=== PATIENT | female | born 1935 | race Caucasian/White ===

== ENCOUNTER 2018-07-28 10:32 | Inpatient (IN) | payer MEDICARE ==
[2018-07-28] MEDS ORDERED: Sodium Chloride 0.9% 500 ML IV ONE (10:48)
[2018-07-28 11:08] LABS: BASO # 0.1 K/uL (0.0-0.2); BASO % 1.3 % (0.0-2.0); EOS % 0.7 % (0.0-4.0); HEMOGLOBIN 13.8 g/dL (12.0-16.0); LYMPH # 1.4 K/uL (1.0-4.3); LYMPH % 21.2 % (20.0-40.0); MEAN CELL VOLUME 93.2 fl (81.0-99.0); MEAN CORPUSCULAR HEMOGLOBIN 30.6 pg (27.0-31.0); MEAN CORPUSCULAR HGB CONC 32.8 g/dL (33.0-37.0); MONO # 0.3 K/uL (0.0-0.8); NEUT # 4.8 K/uL (1.8-7.0); NEUT % 71.8 % (50.0-75.0); RBC 4.52 Mil/uL (3.80-5.20); RED CELL DISTRIBUTION WIDTH 14.5 % (11.5-14.5); WHITE BLOOD COUNT 6.8 K/uL (4.8-10.8)
[2018-07-28 11:17] LABS: ALB/GLOB RATIO 1.1 (1.0-2.1); ALT/SGPT 15 U/L (9-52); AST/SGOT 20 U/L (14-36); BLOOD UREA NITROGEN 27 mg/dl (7-17); CALCIUM 9.7 mg/dL (8.4-10.2); GFR NON-AFRICAN AMERICAN 53
[2018-07-28 11:35] LABS: SQUAMOUS EPITHIAL 3 /hpf (0-5); URINE BILIRUBIN NEGATIVE (NEGATIVE); URINE BLOOD MODERATE (NEGATIVE); URINE CLARITY CLOUDY (Clear); URINE COLOR YELLOW (YELLOW); URINE GLUCOSE (UA) NEG (NEGATIVE); URINE LEUKOCYTE ESTERASE SMALL Leu/uL (Negative); URINE PROTEIN NEGATIVE (NEGATIVE)
--- NOTE | 2018-07-28 12:28 | ED PDOC ---
Syncope/Near Syncope/Dizziness Time Seen by Provider: 07/28/18 10:56 Chief Complaint (Nursing): Syncope Chief Complaint (Provider): syncope History Per: Patient (83 y/o female h/o Dementia and HTN here with son (primary coating and baking operator) for evaluation of 2 episodes of near syncope and third episode of syncope today 1 hour prior to ED arrival. Denies any chest pain/abdominal pain complaints. No h/o CVA/syncope in past.) Past Medical History Reviewed: Historical Data, Nursing Documentation, Vital Signs Vital Signs: Last Vital Signs Temp 98.5 F 07/28/18 11:29 Pulse 102 H 07/28/18 11:26 Resp 22 07/28/18 11:26 BP 133/78 07/28/18 11:26 Pulse Ox 97 07/28/18 11:26 - Medical History PMH: Asthma, Dementia, HTN Denies: Diabetes, Hepatitis, HIV, Seizures, Sexually Transmitted Disease - Family History Family History: States: No Known Family Hx - Home Medications Home Medications: Ambulatory Orders Medication Instructions Recorded Memantine [Namenda] 10 mg PO BID 07/28/18 - Allergies Allergies/Adverse Reactions: Allergies Allergy/AdvReac Type Severity Reaction Status Date / Time Penicillins Allergy RASH Verified 07/28/18 13:21 Review of Systems ROS Statement: Except As Marked, All Systems Reviewed And Found Negative Physical Exam - Reviewed Nursing Documentation Reviewed: Yes Vital Signs Reviewed: Yes - Physical Exam Appears: Positive for: Well, Non-toxic, No Acute Distress Head Exam: Positive for: ATRAUMATIC, NORMAL INSPECTION, NORMOCEPHALIC Skin: Positive for: Normal Color, Warm, DRY Eye Exam: Positive for: EOMI, Normal appearance, PERRL ENT: Positive for: Normal ENT Inspection Neck: Positive for: Normal, Painless ROM Cardiovascular/Chest: Positive for: Regular Rate, Rhythm Respiratory: Positive for: CNT, Normal Breath Sounds Gastrointestinal/Abdominal: Positive for: Normal Exam, Soft Back: Positive for: Normal Inspection Extremity: Positive for: Normal ROM Neurologic/Psych: Positive for: Alert, Oriented - Laboratory Results Result Diagrams: 07/28/18 10:59 07/28/18 10:59 - ECG ECG Rhythm: Positive for: Sinus Rhythm (99BPM NEW LBBB COMPARED TO OLD EKG 2016) O2 Sat by Pulse Oximetry: 97 - Progress ED Course And Treament: HEAD CT: PENDING NS 500ML IV BOLUS. UTI NOTED. rocephin d/c as pcn allergy noted. macrobid 100mg x 1 dose D/W HYACINTH REARDON ADMIT TO FINANCIAL SALES ADVISOR CT: No significant interval changes appreciated in pattern of age related neuro degenerative changes described above. No acute intracranial findings by standard CT criteria. Follow-up CT or MRI are available if clinically warranted. Disposition - Clinical Impression Clinical Impression: Syncope, New onset left bundle branch block (LBBB), UTI (urinary tract infection) - Patient ED Disposition Is Patient to be Admitted: Yes - Disposition Disposition Time: 12:28 Condition: FAIR - Pt Status Changed To: Hospital Disposition Of: Inpatient - Admit Certification Admit to Inpatient:: After my assessment, the patient will require hospitalization for at least two midnights. This is because of the severity of symptoms shown, intensity of services needed, and/or the medical risk in this patient being treated as an outpatient.
[2018-07-28] MEDS ORDERED: cefTRIAXone (Rocephin) 1 gm Inj IVPB ONE (12:30)
--- NOTE | 2018-07-28 12:58 | CT ---
Date of service: 07/28/2018 PROCEDURE: CT HEAD WITHOUT CONTRAST. HISTORY: syncope COMPARISON: Noncontrast head CT 01/03/2015. TECHNIQUE: Axial computed tomography images were obtained through the head/brain without intravenous contrast. Radiation dose: Total exam DLP = 1234.94 mGy-cm. This CT exam was performed using one or more of the following dose reduction techniques: Automated exposure control, adjustment of the mA and/or kV according to patient size, and/or use of iterative reconstruction technique. FINDINGS: HEMORRHAGE: No intracranial hemorrhage. BRAIN: Good corticomedullary differentiation is seen. Reiterated diffuse cerebral atrophy and chronic microangiopathy. No suspicious extra-axial fluid collection is identified and the midline brain anatomy appears grossly nonfocal as imaged. No mass effect identified. VENTRICLES: Unremarkable. No hydrocephalus. CALVARIUM: Unremarkable. PARANASAL SINUSES: Unremarkable as visualized. No significant inflammatory changes. MASTOID AIR CELLS: Unremarkable as visualized. No inflammatory changes. OTHER FINDINGS: None. IMPRESSION: No significant interval changes appreciated in pattern of age related neuro degenerative changes described above. No acute intracranial findings by standard CT criteria. Follow-up CT or MRI are available if clinically warranted.
[2018-07-28] MEDS ORDERED: cefTRIAXone (Rocephin) 1 gm Inj ONE (13:18)
--- NOTE | 2018-07-28 14:52 | CARD ---
APPROVED REPORT Date of service: 07/28/2018 EKG Measurement Heart [id number] <Conclusion> Normal sinus rhythm Left bundle branch block Abnormal ECG
--- NOTE | 2018-07-28 16:32 | RAD ---
Date of service: 07/28/2018 HISTORY: routine COMPARISON: Chest radiographs 01/03/2015. FINDINGS: LUNGS: No active pulmonary disease. PLEURA: No significant pleural effusion identified, no pneumothorax apparent. CARDIOVASCULAR: Calcific atherosclerotic changes are seen related to the thoracic aorta. Normal cardiac size. No pulmonary vascular congestion. OSSEOUS STRUCTURES: No significant abnormalities. VISUALIZED UPPER ABDOMEN: Normal. OTHER FINDINGS: None. IMPRESSION: No interval acute cardiopulmonary disease appreciated.
[2018-07-28] MEDS ORDERED: levoFLOXacin 500 mg in D5W 500 MG/100 ML BAG IVPB STA (20:05)
[2018-07-28] MEDS: Sodium Chloride 0.9% 1,000 ML IV SCH (21:34)
[2018-07-29] MEDS: Sodium Chloride 0.9% 1,000 ML IV SCH ×2 (05:44→15:52)
[2018-07-29 06:58] LABS: BASO % 0.6 % (0.0-2.0); EOS # 0.1 K/uL (0.0-0.7); EOS % 1.6 % (0.0-4.0); HEMOGLOBIN 10.9 g/dL (12.0-16.0); LYMPH # 1.7 K/uL (1.0-4.3); LYMPH % 29.3 % (20.0-40.0); MEAN CELL VOLUME 92.8 fl (81.0-99.0); MEAN CORPUSCULAR HEMOGLOBIN 30.5 pg (27.0-31.0); MEAN CORPUSCULAR HGB CONC 32.9 g/dL (33.0-37.0); MEAN PLATELET VOLUME 7.6 fl (7.2-11.7); MONO # 0.5 K/uL (0.0-0.8); MONO % 9.2 % (0.0-10.0); NEUT # 3.4 K/uL (1.8-7.0); NEUT % 59.3 % (50.0-75.0); NRBC % 0.1 % (0.0-0.0); RBC 3.58 Mil/uL (3.80-5.20); RED CELL DISTRIBUTION WIDTH 14.4 % (11.5-14.5); WHITE BLOOD COUNT 5.7 K/uL (4.8-10.8)
[2018-07-29 07:27] LABS: CALCIUM 8.7 mg/dL (8.4-10.2)
[2018-07-29 07:28] LABS: TROPONIN I 0.027 ng/mL (0.00-0.120)
[2018-07-29] MEDS: levoFLOXacin 250 mg in D5W 250 MG/50 ML BAG IVPB SCH (08:44)
--- NOTE | 2018-07-29 17:50 | US ---
Date of service: 07/29/2018 PROCEDURE: Bilateral lower extremity venous duplex Doppler. HISTORY: discomfort COMPARISON: None available. TECHNIQUE: Bilateral common femoral, superficial femoral, popliteal and posterior tibial veins were evaluated. Flow was assessed with color Doppler, compressibility, assessment of phasic flow and augmentation response. FINDINGS: COMMON FEMORAL VEIN: Right CFV: Unremarkable. Left CFV: Unremarkable. SUPERFICIAL FEMORAL VEIN: Right SFV: Unremarkable. Left SFV: Unremarkable. POPLITEAL VEIN: Right Popliteal: Unremarkable. Left Popliteal: Unremarkable. POSTERIOR TIBIAL VEIN: Right PTV: Unremarkable. Left PTV: Unremarkable. OTHER FINDINGS: Left popliteal cyst 1.6 x 0.7 x 1.7 cm. IMPRESSION: No sonographic evidence of deep venous thrombosis bilateral lower extremities. Left popliteal cyst identified as discussed above.
--- NOTE | 2018-07-29 17:52 | CP.PCM.CON ---
History of Present Illness - History of Present Illness History of Present Illness: ASKED TO SEE PT BY DR FERRERA IN COVERAGE. 83 YO FEMALE WITH SYNCOPE X 1. PT WITH DEMENTIA THUS HISTORY PER CHART AND SON. EKG SHOWS BRADYCARDIA WITH INTERMITTENT MOBITZ 1, AND LBBB. TELE INTERMITTENT ATRIAL AND VENTRICULAR BIGEMINEY WITH HEART BLOCK. PT HAS NO HX OF CAD OR CARDIAC DISORDERS. NOT ON AVN BLOCKING DRUGS. Review of Systems - Review of Systems Systems not reviewed;Unavailable: Dementia Past Patient History - Tetanus Immunizations Tetanus Immunization: Unknown - Past Medical History & Family History Past Medical History?: Yes Past Family History: Reviewed and not pertinent - Past Social History Smoking Status: Former Smoker Chewing Tobacco Use: No Cigar Use: No Alcohol: None Home Situation {Lives}: With Family Domestic Violence: Negative - CARDIAC Hx Cardiac Disorders: No Hx Hypertension: No - PULMONARY Hx Respiratory Disorders: Yes Hx Asthma: Yes - NEUROLOGICAL Hx Dementia: Yes Hx Seizures: No - HEENT Hx HEENT Problems: No - RENAL Hx Chronic Kidney Disease: No - ENDOCRINE/METABOLIC Hx Endocrine Disorders: No - HEMATOLOGICAL/ONCOLOGICAL Hx Blood Disorders: No Hx AIDS: No Hx Human Immunodeficiency Virus (HIV): No - INTEGUMENTARY Hx Dermatological Problems: No - MUSCULOSKELETAL/RHEUMATOLOGICAL Hx Musculoskeletal Disorders: Yes Hx Falls: Yes - GASTROINTESTINAL Hx Gastrointestinal Disorders: No - GENITOURINARY/GYNECOLOGICAL Hx Genitourinary Disorders: No Hx Sexually Transmitted Disorders: No - PSYCHIATRIC Hx Psychophysiologic Disorder: No Hx Substance Use: No - SURGICAL HISTORY Hx Surgeries: No - ANESTHESIA Hx Anesthesia: No Meds Allergies/Adverse Reactions: Allergies Allergy/AdvReac Type Severity Reaction Status Date / Time Penicillins Allergy RASH Verified 07/28/18 13:21 - Medications Medications: Current Medications Acetaminophen (Tylenol 325mg Tab) 325 mg PO Q6 PRN PRN Reason: Pain, Mild (1-3) Acetaminophen (Tylenol 325mg Tab) 650 mg PO Q6 PRN PRN Reason: Pain, moderate (4-7) Last Admin: 07/29/18 15:21 Dose: 650 mg Sodium Chloride (Sodium Chloride 0.9%) 1,000 mls @ 100 mls/hr IV .Q10H ONOFRE Last Admin: 07/29/18 15:52 Dose: 100 mls/hr Levofloxacin/Dextrose (Levaquin 250mg) 250 mg in 50 mls @ 50 mls/hr IVPB DAILY ONOFRE; Protocol Last Admin: 07/29/18 08:44 Dose: 50 mls/hr Memantine (Namenda) 10 mg PO BID ONOFRE Last Admin: 07/29/18 08:44 Dose: 10 mg Physical Exam - Constitutional Appears: Confused - Head Exam Head Exam: ATRAUMATIC, NORMAL INSPECTION, NORMOCEPHALIC - Eye Exam Eye Exam: EOMI, Normal appearance, PERRL. absent: Conjunctival injection, Nystagmus, Periorbital swelling, Periorbital tenderness, Scleral icterus Pupil Exam: NORMAL ACCOMODATION, PERRL. absent: Fixed, Irregular, Miosis, Mydriatic, Unequal - ENT Exam ENT Exam: Mucous Membranes Moist, Normal Exam. absent: Mucous Membranes Dry, Normal External Ear Exam, Normal Oropharynx, TM's Normal Bilaterally - Neck Exam Neck exam: Positive for: Normal Inspection. Negative for: Full Rom, Lymphadenopathy, Meningismus, Tenderness, Thyromegaly - Respiratory Exam Respiratory Exam: Clear to Auscultation Bilateral, NORMAL BREATHING PATTERN. absent: Accessory Muscle Use, Chest Wall Tenderness, Decreased Breath Sounds, Prolonged Expiratory Phase, Rales, Rhonchi, Wheezes, Respiratory Distress, Stridor - Cardiovascular Exam Cardiovascular Exam: REGULAR RHYTHM, +S1, +S2, Systolic Murmur. absent: Bradycardia, Tachycardia, Clicks, Diastolic murmur, Gallop, Irregular Rhythm, JVD, RRR, Rubs, +S4 - GI/Abdominal Exam GI & Abdominal Exam: Normal Bowel Sounds, Soft. absent: Bruit, Diminished Bowel Sounds, Distended, Firm, Guarding, Hernia, Hyperactive Bowel Sounds, Hypoactive Bowel Sounds, Mass, Organomegaly, Pulsatile Mass, Rebound, Rigid, Tenderness - Rectal Exam Rectal Exam: Deferred - Extremities Exam Extremities exam: Positive for: normal inspection. Negative for: calf tenderness, full ROM, joint swelling, normal capillary refill, pedal edema, tenderness, pedal pulses present - Back Exam Back exam: NORMAL INSPECTION. absent: CVA tenderness (L), CVA tenderness (R), FULL ROM, muscle spasm, paraspinal tenderness, rash noted, tenderness, vertebral tenderness - Neurological Exam Neurological exam: Alert, CN II-XII Intact, Normal Gait, Oriented x3, Reflexes Normal - Psychiatric Exam Psychiatric exam: Normal Affect, Normal Mood - Skin Skin Exam: Dry, Intact, Normal Color, Warm Results - Vital Signs Recent Vital Signs: Last Vital Signs Temp 99.9 F H 07/29/18 16:20 Pulse 50 L 07/29/18 16:20 Resp 18 07/29/18 16:20 BP 140/75 07/29/18 16:20 Pulse Ox 99 07/29/18 16:20 - Labs Result Diagrams: 07/29/18 06:00 07/29/18 06:00 Labs: Laboratory Results - last 24 hr 07/29/18 07/29/18 06:00 06:00 WBC 5.7 RBC 3.58 L Hgb 10.9 L D Hct 33.2 L MCV 92.8 MCH 30.5 MCHC 32.9 L RDW 14.4 Plt Count 262 MPV 7.6 Neut % (Auto) 59.3 Lymph % (Auto) 29.3 Walton % (Auto) 9.2 Eos % (Auto) 1.6 Baso % (Auto) 0.6 Neut # (Auto) 3.4 Lymph # (Auto) 1.7 Walton # (Auto) 0.5 Eos # (Auto) 0.1 Baso # (Auto) 0.0 Sodium 138 Potassium 4.4 Chloride 105 Carbon Dioxide 25 Anion Gap 12 BUN 28 H Creatinine 1.1 Est GFR ( Amer) 57 Est GFR (Non-Af Amer) 47 Random Glucose 94 Calcium 8.7 Total Bilirubin 0.4 AST 18 ALT 18 Alkaline Phosphatase 44 Troponin I 0.0270 Total Protein 6.0 L Albumin 3.0 L D Globulin 3.0 Albumin/Globulin Ratio 1.0 Assessment & Plan (1) Mobitz (type) I (Wenckebach's) atrioventricular block Status: Acute (2) Atrial bigeminy Status: Acute (3) Ventricular bigeminy Status: Acute (4) New onset left bundle branch block (LBBB) Status: Acute (5) Syncope Status: Acute - Assessment and Plan (Free Text) Plan: PT WILL NEED PM DISCUSSED WITH SON AND HE NEEDS TO SPEAK WITH OTHER SIBLINGS EP CONSULT ORDERED. 45 MIN TOTAL CARE TIME.
[2018-07-30] MEDS: Sodium Chloride 0.9% 1,000 ML IV SCH ×2 (00:57→12:56)
[2018-07-30 05:55] LABS: BASO % 0.6 % (0.0-2.0); EOS # 0.1 K/uL (0.0-0.7); HEMOGLOBIN 12.4 g/dL (12.0-16.0); LYMPH # 1.9 K/uL (1.0-4.3); LYMPH % 23.4 % (20.0-40.0); MEAN CORPUSCULAR HEMOGLOBIN 30.8 pg (27.0-31.0); MEAN CORPUSCULAR HGB CONC 33.1 g/dL (33.0-37.0); MEAN PLATELET VOLUME 8.2 fl (7.2-11.7); MONO # 0.7 K/uL (0.0-0.8); MONO % 8.8 % (0.0-10.0); NEUT # 5.3 K/uL (1.8-7.0); NEUT % 66.2 % (50.0-75.0); RBC 4.04 Mil/uL (3.80-5.20); RED CELL DISTRIBUTION WIDTH 14.1 % (11.5-14.5)
[2018-07-30 06:24] LABS: ALB/GLOB RATIO 1.1 (1.0-2.1); ALBUMIN 3.5 g/dL (3.5-5.0)
--- NOTE | 2018-07-30 08:05 | CP.PCM.PN ---
Subjective - Date & Time of Evaluation Date of Evaluation: 07/30/18 Time of Evaluation: 06:45 - Subjective Subjective: patient appears well. no chest pain. no dyspnea Objective - Vital Signs/Intake and Output Vital Signs (last 24 hours): Temp Pulse Resp BP Pulse Ox 99 F 66 16 140/75 98 07/29/18 20:30 07/29/18 21:00 07/29/18 20:30 07/29/18 16:20 07/29/18 20:30 - Medications Medications: Current Medications Acetaminophen (Tylenol 325mg Tab) 325 mg PO Q6 PRN PRN Reason: Pain, Mild (1-3) Acetaminophen (Tylenol 325mg Tab) 650 mg PO Q6 PRN PRN Reason: Pain, moderate (4-7) Last Admin: 07/29/18 15:21 Dose: 650 mg Sodium Chloride (Sodium Chloride 0.9%) 1,000 mls @ 100 mls/hr IV .Q10H ONOFRE Last Admin: 07/30/18 00:57 Dose: 100 mls/hr Levofloxacin/Dextrose (Levaquin 250mg) 250 mg in 50 mls @ 50 mls/hr IVPB DAILY ONOFRE; Protocol Last Admin: 07/29/18 08:44 Dose: 50 mls/hr Memantine (Namenda) 10 mg PO BID ONOFRE Last Admin: 07/29/18 17:55 Dose: 10 mg - Labs Labs: 07/30/18 04:55 07/30/18 04:55 - Constitutional Appears: Non-toxic - Head Exam Head Exam: NORMAL INSPECTION - Eye Exam Eye Exam: Normal appearance - ENT Exam ENT Exam: Mucous Membranes Moist - Neck Exam Neck Exam: Full ROM - Respiratory Exam Respiratory Exam: NORMAL BREATHING PATTERN - Cardiovascular Exam Cardiovascular Exam: REGULAR RHYTHM - GI/Abdominal Exam GI & Abdominal Exam: Normal Bowel Sounds - Rectal Exam Rectal Exam: Deferred - Extremities Exam Extremities Exam: absent: Pedal Edema - Back Exam Back Exam: NORMAL INSPECTION - Neurological Exam Neurological Exam: Alert - Psychiatric Exam Psychiatric exam: Normal Affect - Skin Skin Exam: Normal Color Assessment and Plan (1) New onset left bundle branch block (LBBB) Assessment & Plan: will obtain echocardiogram Status: Acute (2) Syncope Assessment & Plan: unclear etiology. will monitor on telemetry Status: Acute (3) Ventricular bigeminy Assessment & Plan: keep K >4.0, Mag >2.0 Status: Acute
[2018-07-30] MEDS: levoFLOXacin 250 mg in D5W 250 MG/50 ML BAG IVPB SCH (09:02)
--- NOTE | 2018-07-30 11:20 | CP.PCM.PN ---
Subjective - Date & Time of Evaluation Date of Evaluation: 07/30/18 Time of Evaluation: 11:18 - Subjective Subjective: pt doign well. w/o copmalints. no f/c, n/v/d. bw noted. consults appriciated. pt was recommended to have pacemaker and EP is coming for eval after echo today Objective - Vital Signs/Intake and Output Vital Signs (last 24 hours): Temp Pulse Resp BP Pulse Ox 97.8 F 96 H 18 132/53 L 96 07/30/18 08:00 07/30/18 08:00 07/30/18 08:00 07/30/18 08:00 07/30/18 08:00 - Medications Medications: Current Medications Acetaminophen (Tylenol 325mg Tab) 325 mg PO Q6 PRN PRN Reason: Pain, Mild (1-3) Acetaminophen (Tylenol 325mg Tab) 650 mg PO Q6 PRN PRN Reason: Pain, moderate (4-7) Last Admin: 07/29/18 15:21 Dose: 650 mg Sodium Chloride (Sodium Chloride 0.9%) 1,000 mls @ 100 mls/hr IV .Q10H ONOFRE Last Admin: 07/30/18 00:57 Dose: 100 mls/hr Levofloxacin/Dextrose (Levaquin 250mg) 250 mg in 50 mls @ 50 mls/hr IVPB DAILY ONOFRE; Protocol Last Admin: 07/30/18 09:02 Dose: 50 mls/hr Memantine (Namenda) 10 mg PO BID ONOFRE Last Admin: 07/30/18 08:57 Dose: 10 mg - Labs Labs: 07/30/18 04:55 07/30/18 04:55 - Constitutional Appears: Well, Non-toxic, No Acute Distress - Head Exam Head Exam: ATRAUMATIC, NORMAL INSPECTION, NORMOCEPHALIC - Eye Exam Eye Exam: EOMI, Normal appearance, PERRL Pupil Exam: NORMAL ACCOMODATION, PERRL - ENT Exam ENT Exam: Mucous Membranes Moist, Normal Exam - Neck Exam Neck Exam: Full ROM, Normal Inspection. absent: Lymphadenopathy - Respiratory Exam Respiratory Exam: Clear to Ausculation Bilateral, NORMAL BREATHING PATTERN - Cardiovascular Exam Cardiovascular Exam: REGULAR RHYTHM, RRR, +S1, +S2. absent: Murmur - GI/Abdominal Exam GI & Abdominal Exam: Soft, Normal Bowel Sounds. absent: Tenderness - Extremities Exam Extremities Exam: Full ROM, Normal Capillary Refill, Normal Inspection. absent: Joint Swelling, Pedal Edema - Back Exam Back Exam: NORMAL INSPECTION - Neurological Exam Neurological Exam: Alert, Awake, CN II-XII Intact, Normal Gait, Oriented x3 - Psychiatric Exam Psychiatric exam: Normal Affect, Normal Mood - Skin Skin Exam: Dry, Intact, Normal Color, Warm Assessment and Plan (1) DVT prophylaxis Assessment & Plan: scd and ae hose hold anticoag for fall risk and possible procedre Status: Acute (2) Atrial bigeminy Assessment & Plan: cardio/ep Status: Acute (3) Mobitz (type) I (Wenckebach's) atrioventricular block Assessment & Plan: cardio/ep Status: Acute (4) New onset left bundle branch block (LBBB) Assessment & Plan: cardio ep trops negative echo Status: Acute (5) Syncope Assessment & Plan: echo likely r/t new abn heart rhythms Status: Acute
--- NOTE | 2018-07-30 13:38 | CARD ---
APPROVED REPORT Date of service: 07/30/2018 EXAM: Two-dimensional and M-mode echocardiogram with Doppler and color Doppler. Other Information Quality : FairRhythm : LBBB INDICATION Abnormal EKG/Arrhythmia 2D DIMENSIONS IVSd1.25 (0.7-1.1cm)LVDd3.85 (3.9-5.9cm) PWd0.86 (0.7-1.1cm)IVSs1.70 (0.8-1.2cm) LVDs2.96 (2.5-4.0cm)FS (%) 23.1 % PWs1.45 (0.8-1.2cm) M-Mode DIMENSIONS Left Atrium (MM)3.91 (2.5-4.0cm)IVSd1.47 (0.7-1.1cm) Aortic Root2.76 (2.2-3.7cm)LVDd3.24 (4.0-5.6cm) Aortic Cusp Exc.2.00 (1.5-2.0cm)PWd1.18 (0.7-1.1cm) IVSs1.47 cmFS (%) 33 % LVDs2.18 (2.0-3.8cm)PWs1.50 cm Aortic Valve AoV Peak Bnxxmsah573.9cm/sAoV VTI22.2cmAO Peak GR.7mmHg AO Mean GR.5mmHg Mitral Valve E/A ratio0.0 TDI E/Lateral E'0.0E/Medial E'0.0 LEFT VENTRICLE The left ventricle is normal size. There is normal left ventricular wall thickness. The left ventricular systolic function is normal. The estimated ejection fraction is 60-65% No regional wall motion abnormalities noted.. Transmitral Doppler flow pattern is Grade I-abnormal relaxation pattern. No left ventricle thrombus noted on this study. There is no ventricular septal defect visualized. There is no left ventricular aneurysm. There is no mass noted in the left ventricle. RIGHT VENTRICLE The right ventricle is normal size. There is normal right ventricular wall thickness. The right ventricular systolic function is normal. ATRIA The left atrium size is normal. The right atrium size is normal. The interatrial septum is intact with no evidence for an atrial septal defect. AORTIC VALVE The aortic valve is normal in structure. No aortic regurgitation is present. There is no aortic valvular stenosis. There is no aortic valvular vegetation. MITRAL VALVE The mitral valve is normal in structure. There is no evidence of mitral valve prolapse. There is no mitral valve stenosis. There is trace mitral valve regurgitation noted. TRICUSPID VALVE The tricuspid valve is normal in structure. There is trivial tricuspid valve regurgitation noted. There is no tricuspid valve prolapse or vegetation. There is no tricuspid valve stenosis. PULMONIC VALVE The pulmonary valve is normal in structure. There is no pulmonic valvular regurgitation. There is no pulmonic valvular stenosis. GREAT VESSELS The aortic root is normal in size. The ascending aorta is normal in size. The pulmonary artery is normal. The IVC is normal in size and collapses >50% with inspiration. PERICARDIAL EFFUSION There is no pericardial effusion. There is no pleural effusion. <Conclusion> The estimated ejection fraction is 60-65% Transmitral Doppler flow pattern is Grade I-abnormal relaxation pattern. The left atrium size is normal. There is trivial tricuspid valve regurgitation noted.
--- NOTE | 2018-07-30 14:52 | CARD ---
APPROVED REPORT Date of service: 07/29/2018 EKG Measurement Heart [id number] <Conclusion> Sinus rhythm with 2nd degree AV block (Mobitz I) Intermittent Left bundle branch block Abnormal ECG
[2018-07-31] MEDS: Sodium Chloride 0.9% 1,000 ML IV SCH (00:52)
[2018-07-31 01:55] VITALS: RESP 20
--- NOTE | 2018-07-31 06:19 | CON ---
DATE: 07/30/2018 INPATIENT ELECTROPHYSIOLOGY CONSULTATION TYPE OF CONSULTATION: 1. Heart block second degree type 1. 2. Bradycardia. 3. Syncope. 4. PVCs. PHYSICIAN REQUESTING CONSULT: Dr. Jade Vences/Dr. Hernandez. HISTORY OF PRESENT ILLNESS: Mrs. Tonny Valiente is an 83-year-old [place] female with past medical history significant for hypertension, dementia who presents initially to [facility] (Formerly [facility]) on the day of admission 07/28/2018 with repeated episodes of loss of consciousness while being bathed by her son. The patient was seen and evaluated in the emergency department and was admitted for further evaluation and management. Son is at the bedside at the time of evaluation, and is the primary care manager cna and was present during this episode. The patient had been in her usual state of health and was in the process of being bathed. She was in the bath tub, she was being held and lifted at which point the patient began to lose consciousness and shake. She came too shortly thereafter. Again had another episode where she briefly lost consciousness in shock and then finally a third time at which point the son noticed that her eyes rolls in the back of her head and then she came to. She was then brought in by EMS for further evaluation and management. PAST MEDICAL HISTORY: Hypertension, dementia, and asthma. FAMILY HISTORY: Negative for premature coronary artery disease or sudden cardiac . MEDICATIONS AT HOME: Include Namenda 10 mg p.o. b.i.d. A 12-lead EKG which was done yesterday shows sinus rhythm with first degree AV block with an episode of very subtle Wenckebach. There was a left bundle branch block type pattern noted. On review of telemetry strips, majority of the strips reviewed reveals normal sinus rhythm, occasional bigeminal pattern with fixed PVCs. There appeared to be at times related left bundle branch block type pattern, left bundle branch block resolves after a pass. Occasionally, the fixed couple PVCs may actually be PACs with aberrant conduction on further review. Echocardiogram which was done today shows left ventricle which is normal in size, normal left ventricular wall thickness, left ventricular systolic function is within normal limits. No regional wall motion abnormalities are noted on this study. No ventricular septal defect is noted. Right ventricle also looks within normal limits. Left atrium is within normal limits. Aortic valve also normal without any evidence of vegetation, tricuspid valve and mitral valve were also within normal limits. There is evidence of diastolic dysfunction. PHYSICAL EXAMINATION: GENERAL: The patient appears pleasant, conversational with two sons at the bedside. She does primarily speak [place]. VITAL SIGNS: Temperature is 98.3, blood pressure is 114/57, heart rate of 70. HEENT: Normocephalic and atraumatic. Examination is within normal limits. CHEST: Clear to auscultation bilaterally. CARDIOVASCULAR EXAM: Regular rate and rhythm. S1, S2. No S3 or S4. ABDOMEN: Soft. Not obese. Positive for bowel sounds. EXTREMITIES: No cyanosis, clubbing. There is mild pedal edema. SKIN: With normal color. LABORATORY DATA: On review of lab work, the patient has a white count of 8, H and H of 12.4 and 37.6. Sodium of 142, chloride of 109, BUN and creatinine is 22 and 1.2, albumin is 3.5, TSH is elevated. ASSESSMENT: 1. Episodic heart block in the setting of first degree atrioventricular block. The patient does have Mobitz type 1 that does occur from time to time. Her left bundle branch block also appears to be somewhat rate related. It is unclear if progression of heart block is the cause of her presentation at this time. Heart rates and blood pressures have been stable over the last 24 hours. On discussion we had with the patient's son, the patient does have dementias primarily cared for by the son who lives with the mother. She is bed bound. She does get around with the wheelchair but is limiting in terms of which she is able to do. At this point there is no clear evidence of prolonged heart block or sinus node dysfunction resulting in significant bradycardia. At this point, I would continue to watch her carefully. She is not on any rate slowing agent. It is unclear if hypothyroidism plays any role in her current presentation. I have discussed the possibility of an electrophysiology study but at this point given her advanced dementia and poor functional status, would not consider an electrophysiology study at this point. We will continue to watch. We may even also continue to consider outpatient telemetric monitoring if there is any significant bradycardia with related symptoms. A permanent pacemaker may be indicated at that time. 2. Bradycardia which is changing, and at this point, the patient has relatively intact conduction and relatively normal heart rates. 3. Syncope of unclear etiology where the patient has a urinary tract infection or some other condition ____ unclear. 4. Premature ventricular contractions which may actually be aberrantly conducted premature atrial contractions. We will continue to watch at this point, would not put her on any rate slowing agents without chronotropic support. 5. Hypothyroidism. To be further evaluated by the primary medical team. I will discuss the case with Dr. Jade Vences in the near future. Thank you for allowing me to participate in the care of your patient. Please do not hesitate to call if you have any questions in regards to her care. Ari Graf MD
[2018-07-31 07:49] VITALS: O2SAT 100
[2018-07-31] MEDS: levoFLOXacin 250 mg in D5W 250 MG/50 ML BAG IVPB SCH (09:02)
[2018-07-31 11:44] VITALS: BP 136/75; PULSE 78; TEMP 97.9
--- NOTE | 2018-07-31 12:34 | CP.PCM.DIS ---
Provider - Provider Date of Admission: 07/28/18 12:28 Attending physician: Micheal Moody MD Consults: 07/28/18 19:06 Cardiology Consult Routine Comment: Consulting Provider: Jade Vences Consulting Physician: Jade Vences Reason for Consult: new LBBB 07/28/18 20:15 Nursing Referral for Wound Care Routine Comment: Physician Instructions: Reason For Exam: wound on sacrum 07/29/18 17:52 Physician Consult Routine Comment: Consulting Provider: Ari Graf Consulting Physician: Ari Graf Reason for Consult: pacemaker insertion Time Spent in preparation of Discharge (in minutes): 15 Diagnosis - Discharge Diagnosis (1) DVT prophylaxis Status: Acute (2) Atrial bigeminy Status: Acute (3) Mobitz (type) I (Wenckebach's) atrioventricular block Status: Acute (4) New onset left bundle branch block (LBBB) Status: Acute (5) Syncope Status: Acute Hospital Course - Lab Results Lab Results: Micro Results 07/28/18 11:24 Urine,Catheterized Urine Culture - Final <10,000 CFU/ML. MULTIPLE SPECIES. PROBABLE CONTAMINATION. Most Recent Lab Values WBC 8.0 K/uL (4.8-10.8) 07/30/18 04:55 RBC 4.04 Mil/uL (3.80-5.20) 07/30/18 04:55 Hgb 12.4 g/dL (12.0-16.0) 07/30/18 04:55 Hct 37.6 % (34.0-47.0) 07/30/18 04:55 MCV 93.0 fl (81.0-99.0) 07/30/18 04:55 MCH 30.8 pg (27.0-31.0) 07/30/18 04:55 MCHC 33.1 g/dL (33.0-37.0) 07/30/18 04:55 RDW 14.1 % (11.5-14.5) 07/30/18 04:55 Plt Count 258 K/uL (130-400) 07/30/18 04:55 MPV 8.2 fl (7.2-11.7) 07/30/18 04:55 Neut % (Auto) 66.2 % (50.0-75.0) 07/30/18 04:55 Lymph % (Auto) 23.4 % (20.0-40.0) 07/30/18 04:55 [place] % (Auto) 8.8 % (0.0-10.0) 07/30/18 04:55 Eos % (Auto) 1.0 % (0.0-4.0) 07/30/18 04:55 Baso % (Auto) 0.6 % (0.0-2.0) 07/30/18 04:55 Neut # (Auto) 5.3 K/uL (1.8-7.0) 07/30/18 04:55 Lymph # (Auto) 1.9 K/uL (1.0-4.3) 07/30/18 04:55 [place] # (Auto) 0.7 K/uL (0.0-0.8) 07/30/18 04:55 Eos # (Auto) 0.1 K/uL (0.0-0.7) 07/30/18 04:55 Baso # (Auto) 0.0 K/uL (0.0-0.2) 07/30/18 04:55 Sodium 142 mmol/l (132-148) 07/30/18 04:55 Potassium 4.0 MMOL/L (3.6-5.0) 07/30/18 04:55 Chloride 109 mmol/L (98-107) H 07/30/18 04:55 Carbon Dioxide 23 mmol/L (22-30) 07/30/18 04:55 Anion Gap 14 (10-20) 07/30/18 04:55 BUN 22 mg/dl (7-17) H 07/30/18 04:55 Creatinine 1.2 mg/dl (0.7-1.2) 07/30/18 04:55 Est GFR ( Amer) 52 07/30/18 04:55 Est GFR (Non-Af Amer) 43 07/30/18 04:55 POC Glucose (mg/dL) 127 mg/dL (65-110) H 07/28/18 10:44 Random Glucose 112 mg/dL (65-105) H 07/30/18 04:55 Calcium 9.0 mg/dL (8.4-10.2) 07/30/18 04:55 Magnesium 1.9 MG/DL (1.6-2.3) 07/28/18 10:59 Total Bilirubin 0.6 mg/dl (0.2-1.3) 07/30/18 04:55 AST 22 U/L (14-36) 07/30/18 04:55 ALT 21 U/L (9-52) 07/30/18 04:55 Alkaline Phosphatase 56 U/L (38-126) 07/30/18 04:55 Troponin I 0.0270 ng/mL (0.00-0.120) 07/29/18 06:00 Total Protein 6.7 G/DL (6.3-8.2) 07/30/18 04:55 Albumin 3.5 g/dL (3.5-5.0) 07/30/18 04:55 Globulin 3.2 gm/dL (2.2-3.9) 07/30/18 04:55 Albumin/Globulin Ratio 1.1 (1.0-2.1) 07/30/18 04:55 TSH 3rd Generation 8.56 mIU/ML (0.46-4.68) H 07/30/18 04:55 Urine Color Yellow (YELLOW) 07/28/18 11:24 Urine Clarity Cloudy (Clear) 07/28/18 11:24 Urine pH 5.0 (5.0-8.0) 07/28/18 11:24 Ur Specific [place] 1.024 (1.003-1.030) 07/28/18 11:24 Urine Protein Negative mg/dL (NEGATIVE) 07/28/18 11:24 Urine Glucose (UA) Neg mg/dL (NEGATIVE) 07/28/18 11:24 Urine Ketones Negative mg/dL (NEGATIVE) 07/28/18 11:24 Urine Blood Moderate (NEGATIVE) 07/28/18 11:24 Urine Nitrate Negative (NEGATIVE) 07/28/18 11:24 Urine Bilirubin Negative (NEGATIVE) 07/28/18 11:24 Urine Urobilinogen 2.0 mg/dL (0.2-1.0) H 07/28/18 11:24 Ur Leukocyte Esterase Small Bal/uL (Negative) 07/28/18 11:24 Urine RBC (Auto) 174 /hpf (0-3) H 07/28/18 11:24 Urine Microscopic WBC 9 /hpf (0-5) H 07/28/18 11:24 Ur Squamous Epith Cells 3 /hpf (0-5) 07/28/18 11:24 Hyaline Casts 3-5 /hpf (0-2) H 07/28/18 11:24 - Hospital Course Hospital Course: pt doign well. w/o complaints/distress. consults appriciated. cleared by cardio/ep for dc. son made aware of all. echo reviewed Discharge Exam - Head Exam Head Exam: ATRAUMATIC, NORMAL INSPECTION, NORMOCEPHALIC - Eye Exam Eye Exam: EOMI, Normal appearance, PERRL Pupil Exam: NORMAL ACCOMODATION, PERRL - Respiratory Exam Respiratory Exam: Clear to PA & Lateral, NORMAL BREATHING PATTERN, UNREMARKABLE - Cardiovascular Exam Cardiovascular Exam: REGULAR RHYTHM, RRR, +S1, +S2 - GI/Abdominal Exam GI & Abdominal Exam: Normal Bowel Sounds, Unremarkable - Extremities Exam Extremities exam: full ROM, normal capillary refill, normal inspection, pedal pulses present - Back Exam Back exam: NORMAL INSPECTION - Neurological Exam Neurological exam: Alert, CN II-XII Intact, Normal Gait, Oriented x3, Reflexes Normal - Psychiatric Exam Psychiatric exam: Normal Affect, Normal Mood - Skin Skin Exam: Dry, Intact, Normal Color, Warm Discharge Plan - Discharge Medications Prescriptions: levoFLOXacin [Levaquin] 250 mg PO DAILY #5 tab - Follow Up Plan Condition: FAIR Disposition: HOME/ ROUTINE Instructions: Urinary Tract Infection, Adult (DC), Heart Block, Adult (DC), Syncope (Fainting) (DC) Additional Instructions: please follow up with Dusty zarco on 08/02/18 please follow up with on monday08/03/18 at 11:00am final dx-syncope, lbbb f/u cardio outpt for halter doing well w/o distresscleare dby cardio Referrals: Micheal Moody MD [Staff Provider] - Jade Vences MD [Staff Provider] -
== END 2018-07-31 13:52 | disposition home or self-care (01) | DRG 309 ==
LOC: H.ER 10:32 → H.ERHOLD 12:28 → H.TEL 15:05
PROVIDERS: ADMIT Family Medicine; ATTEND Family Medicine
DX: I44.1 Atrioventricular block, second degree (principal); N39.0 Urinary tract infection, site not specified; R00.8 Other abnormalities of heart beat; I44.7 Left bundle-branch block, unspecified; R00.1 Bradycardia, unspecified; R55 Syncope and collapse; I49.3 Ventricular premature depolarization; F03.90 Unspecified dementia, unspecified severity, without behavioral disturbance, psychotic disturbance, mood disturbance, and anxiety; I10 Essential (primary) hypertension; Z88.0 Allergy status to penicillin; J45.909 Unspecified asthma, uncomplicated; Z74.01 Bed confinement status; E03.9 Hypothyroidism, unspecified; Z87.891 Personal history of nicotine dependence